=== PATIENT | male | born 1990 | race Hispanic/Latino ===

== ENCOUNTER 2021-06-15 10:03 | Emergency (ER) | payer SELFPAY ==
[~2021-06-15] VITALS: Ht 180.3 cm; Wt 83.9 kg
[2021-06-15 10:08] VITALS: BP 120/70
[2021-06-15 11:43] LABS: HEMATOCRIT 43.8 % (42-54); RED BLOOD CELL COUNT(AUTO) 5.08 MIL/uL (4.50-6.20)
[2021-06-15 11:44] LABS: BASOPHILS % (AUTO) 0.3 % (0.0-5.0); EOSINOPHILS % (AUTO) 2.1 % (0.0-8.0); LYMPHOCYTES % (AUTO) 38.5 % (21.0-51.0); MEAN CORPUSCULAR HEMOGLOBIN 28.7 pg (27.0-33.0); MEAN CORPUSCULAR HGB CONC 33.3 g/dL (32.0-36.0); MEAN CORPUSCULAR VOLUME 86.2 fL (79-99); MONOCYTES % (AUTO) 7.1 % (3.0-13.0); NEUTROPHILS % (AUTO) 51.9 % (40.0-77.0); PLATELET COUNT (AUTO) 224 K/uL (130-400); RED CELL DISTRIBUTION WIDTH 13.1 % (11.0-15.5)
[2021-06-15 11:55] LABS: CREATININE 1.1 mg/dL (0.5-1.5); POTASSIUM 4.5 mmol/L (3.5-5.1)
[2021-06-15 12:00] LABS: BILIRUBIN,TOTAL 0.7 mg/dL (0.2-1.0); TOTAL PROTEIN, SERUM 7.2 g/dL (6.0-8.3)
[2021-06-15 12:09] LABS: INR 0.99 (0.85-1.15); PROTHROMBIN TIME 10.8 SEC (9.6-11.6)
[2021-06-15 12:10] LABS: PARTIAL THROMBOPLASTIN TIME 24.6 SEC (26.3-35.5)
[2021-06-15 12:19] LABS: APPEARANCE,URINE Clear (CLEAR); BILIRUBIN,URINE Negative (NEGATIVE); COLOR,URINE Yellow (YELLOW); GLUCOSE, URINE (UA) Negative (NEGATIVE); KETONES,URINE Negative (NEGATIVE); LEUKOCYTE ESTERASE ,URINE Trace (NEGATIVE); NITRATE,URINE Negative (NEGATIVE); OCCULT BLOOD,URINE Negative (NEGATIVE); PROTEIN,URINE Negative (NEGATIVE); UROBILINOGEN,URINE 0.2 mg/dL (0.2-1.0)
[2021-06-15 12:50] LABS: BACTERIA,URINE None Seen /HPF (None Seen); RBC,URINE None Seen /HPF (0-1); SQUAMOUS EPITHELIAL CELL,UR 0-2 /HPF (0-2); WBC,URINE 0-1 /HPF (0-1)
[2021-06-15 13:22] VITALS: BP 122/75
[2021-06-15] MEDS ORDERED: HYDR25SU38 RC (13:36)
== END 2021-06-15 14:05 | disposition home or self-care (01) ==
LOC: EDH 10:03
DX: K62.5 Hemorrhage of anus and rectum (principal); R42 Dizziness and giddiness; R10.9 Unspecified abdominal pain
CPT/HCPCS: 36415; 80053; 81001; 82270; 85025; 85610; 85730

== ENCOUNTER 2023-05-01 19:47 | Emergency (ER) | payer OTHER ==
[~2023-05-01] VITALS: Ht 172.7 cm; Wt 83.9 kg
[~2023-05-01 19:47] MED LIST: HYDR25SU38 RC
[2023-05-01] MEDS ORDERED: ACETAMINOPHEN 500 MG TABLET PO ONE (21:00)
[2023-05-01] MEDS ORDERED: IBUPROFEN 800 MG TAB PO ONE (21:00)
[2023-05-01 21:04] VITALS: BP 118/75
[2023-05-01] MEDS ORDERED: CEFU500T67 PO (22:59)
[2023-05-01] MEDS ORDERED: PRED20TA3 PO (22:59)
[2023-05-01] MEDS ORDERED: ALBU90AE2 IH (22:59)
[2023-05-01] MEDS ORDERED: SOLU-MEDROL 125MG VIAL IVP ONE (23:00)
[2023-05-01] MEDS ORDERED: CEFTRIAXONE 1G VIAL IVPB ONE (23:00)
[2023-05-01] MEDS ORDERED: 0.9%NACL 1000ML 1,000 ML IV ONE (23:00)
[2023-05-01] MEDS ORDERED: SOLU-MEDROL 125MG VIAL ONE (23:03)
[2023-05-01] MEDS ORDERED: CEFTRIAXONE 1G VIAL ONE (23:03)
== END 2023-05-01 23:17 | disposition home or self-care (01) ==
LOC: EDH 19:47
DX: J20.9 Acute bronchitis, unspecified (principal); Z20.822 Contact with and (suspected) exposure to COVID-19
CPT/HCPCS: 99284; 71045; 87635; 87880; 87804 ×2; C9803; J2930; J0696